=== PATIENT | female | born 1970 | race Caucasian/White ===

== ENCOUNTER → 2018-01-21 | Day surgery (SDC) | payer OTHER ==
[~2018-01-21] VITALS: Ht 152.4 cm; Wt 81.6 kg
--- NOTE | 2018-01-21 13:42 | Operative Report ---
Operative/Inv Procedure Report Surgery Date: 01/21/18 Name of Procedure: right UVJ stone with colic; fluorosocopy Pre-Operative Diagnosis: 7mm right UVJ stone Post-Operative Diagnosis: same Estimated Blood Loss: scant Surgeon/Secondary English Teacher: Tylor Camejo MD Anesthesia: moderate sedation Specimens: none Complications: none Condition: pain free in rr Operative/Procedure Note Note: The patient was taken to the operating room and placed on the ESWL table in supine position. Time out was performed, with the patient awake, to confirm identity, procedure, laterality, and other pertinent jonn-operative information. After adequate anesthesia, the patient was positioned so that the right flank was placed over the ESWL table cut-out, and overlying the dome of the shockwave generator. C-arm fluroscopy, as well as renal US was used to locate the stone, and evaluate the right kidney. The stone was faintly visible on fluroloscopy at the right mid-ureter. Renal US confirmed mild hydronephrosis with no additional stone seen in the right kidney. The right ureter stone was approximate 9 mm in size, and faintly visible with fluoroscopy. Using the C-Arm fluoroscopy in an A-P, and Oblique view, the position of the ureter stone was optimized at the center of the crosshairs. At this point, E.S.W.L. was initiated at low power levels x 200 shocks. After noting the patient's tolerance to the shockwaves, the shockwave power level was quickly maximized. At the end of the procedure, the composition of the stone had changed significantly indicating the pulverization of the ureter stone. A total of 3000 shockwaves were delivered to the stone in order to achieve adequate lithotrypsy. All sponge needle and instrument count were correct at the end of the case. The patient tolerated the procedure well, and was awakened and taken to recovery in satisfactory condition via stretcher. The pt. will be dischared to home with pain meds, diet orders, and intructions to catch fragments with straining the urine. The patient is to have follow-up renal ultrasound and KUB within 1-2 weeks and f/u in the office after discharge. Discharge Disposition: Same Day Admissions CC: Tylor Camejo MD
== END ==
LOC: STS 03:28
DX: N13.2 Hydronephrosis with renal and ureteral calculous obstruction (principal); E11.9 Type 2 diabetes mellitus without complications; Z79.84 Long term (current) use of oral hypoglycemic drugs; E03.9 Hypothyroidism, unspecified
CPT/HCPCS: 81025; J2250

== ENCOUNTER 2018-01-29 09:44 | Emergency (ER) | payer OTHER ==
[~2018-01-29] VITALS: Ht 154.9 cm; Wt 81.6 kg
--- NOTE | 2018-01-29 10:05 | ED GI/GU/ABDOMINAL COMPLAINT ---
History of Present Illness General Chief Complaint: Female Urogenital Problems Stated Complaint: SIB DR CAMEJO, KIDNEY STONE Source: patient, family, old records Exam Limitations: no limitations Vital Signs & Intake/Output Vital Signs & Intake/Output Vital Signs Date Time Temp Pulse Resp B/P B/P Pulse O2 O2 Flow FiO2 Mean Ox Delivery Rate 01/29 1517 98.0 98 18 100/70 95 Room Air Room Air 05/ 1414 97.0 102 18 112/70 98 Room Air / 1305 97.3 100 18 112/58 100 Room Air 05/02 1253 97.7 100 20 94 Room Air 05/ 1239 99.0 100 18 111/58 96 Room Air / 1149 97.0 70 20 132/72 100 Room Air / 1126 99.0 84 18 136/70 96 Room Air / 1056 99.0 110 18 148/80 100 Room Air / 0948 97.5 106 18 165/99 96 Room Air Allergies Coded Allergies: Sulfa (Sulfonamide Antibiotics) (HIVES, ITCHY THROAT 01/20/18) aspirin (HIVES, ITCHY THROAT 01/20/18) ibuprofen (HIVES, ITCHY THROAT 01/20/18) penicillin G (UNKNOWN 01/20/18) Reconcile Medications Levothyroxine Sodium (Levoxyl) 50 MCG TABLET 2 TAB PO DAILY AC THYROID ( Reported) Metformin HCl (Metformin HCl ER) 500 MG TAB.ER.24H 1 TAB PO BID DIABETES ( Reported) Triage Note: PT FROM HOME C/O KIDNEY STONE? PT SENT IN BY DR CAMEJO FOR KIDNEY STONE AFTER PT HAD RIGHT SIDE BLASTED ON 01/21. PT STATES PAIN CONTINUES, NAUSEA AND DRY HEAVING, URINARY FREQUENCY. PT STATE BURNING UPON URINATION. VSS. PT IN DISTRESS SITTING ON EDGE OF CHAIR, DENIES HEMATURIA. Triage Nurses Notes Reviewed? yes LMP (ages 10-50): now ? n Is pt currently ? No Onset: Abrupt Duration: day(s): (1), constant Timing: recent history Quality/Severity: aching, cramping, moderate, sharpness Severity Numbers: 10 Location: right flank, right lower quadrant Radiation: flank No Modifying Factors: none Associated Symptoms: denies HPI: 47-year-old female history of prediabetes hypothyroid kidney stones presents to the ER for evaluation complaining of right flank and right lower quadrant abdominal pain. Her history is significant that she had a lithotripsy performed on January 21 by him. She was sent home with Tylenol with codeine and states she only needed to take it the first day. She now reports a dry heaving nausea no vomiting. Urinary frequency hematuria. She is not taken anything for pain today. She denies fever or chills Past History Travel History Traveled to [place] past 21 day No Medical History Any Pertinent Medical History? see below for history Renal: nephrolithiasis Endocrine: diabetes, hypothyroidism Surgical History Surgical History: lithotripsy Psychosocial History What is your primary language Jordanian Tobacco Use: Never used Family History Hx Contributory? No Review of Systems Review of Systems Constitutional: Reports: see HPI. Comments Review of systems: See HPI, All other systems negative. Constitutional, no chills no fever HEENT: no sore throat no congestion Cardiovascular: No chest pain Skin: no rashes, no change in skin Respiratory: No dyspnea no cough GI: nausea no vomiting Muscle skeletal: No joint pain, no back pain Neurologic: , no headache Heme/endocrine: No bruising Physical Exam Physical Exam General Appearance: well developed/nourished, no apparent distress, alert Gastrointestinal: soft, tenderness Comments: Well-developed well-nourished person in no acute distress HEENT: Normal EENT exam; PERRL, EOMI, s. HEAD is atraumatic. moist mucous membranes. Neck: Supple, normal range of motion Back: Nontender, no CVA tenderness. Full range of motion Cardiovascular: Regular rate and rhythms no murmur Respiratory: No respiratory distress. Patient speaking in full complete sentences. Breath sounds clear to auscultation bilaterally: NO W/R/R Abdomen: Soft, rlq tender nondistended, no appreciable organomegaly. Normal bowel sounds. No rebound/guarding, Extremity: No edema, full range of motion of extremities Neuro: Alert oriented x3, motor sensory normal, cranial nerves II through XII grossly intact. There were no obvious focal neurologic abnormalities. Skin: No appreciable rash on exposed skin, skin is warm and dry. Psych: Mood and affect is normal, memory and judgment is normal. Core Measures ACS in differential dx? No Sepsis Present: No Sepsis Focused Exam Completed? No Progress Differential Diagnosis: appendicitis, biliary colic, bowel obstruction, ectopic , gastritis, hepatitis, hernia, ischemic bowel, intrauterine , kidney stone, ovarian cyst, ovarian torsion, pancreatitis, perforated viscous, threatened AB, UTI/pyelo Plan of Care: Orders Procedure Date/time Status Saline Lock 01/29 1007 Active COMPREHENSIVE METABOLIC PANEL 01/29 1007 Complete CBC WITHOUT DIFFERENTIAL 01/29 1007 Complete URINE 01/29 0947 Complete URINALYSIS 01/29 0947 Complete Laboratory Tests 01/29/18 1032: Anion Gap 16, Estimated GFR > 60, BUN/Creatinine Ratio 12.5, Glucose 103 H, Calcium 9.8, Total Bilirubin 0.6, AST 52 H, ALT 63 H, Alkaline Phosphatase 90, Total Protein 8.1, Albumin 4.8, Globulin 3.3, Albumin/Globulin Ratio 1.5, CBC w Diff NO MAN DIFF REQ, RBC 5.05, MCV 82.4, MCH 28.4, MCHC 34.4, RDW 13.5, MPV 8.0 , Gran % 59.2, Lymphocytes % 32.4, Monocytes % 6.9, Eosinophils % 1.0, Basophils % 0.5, Absolute Granulocytes 4.7, Absolute Lymphocytes 2.6, Absolute Monocytes 0.6, Absolute Eosinophils 0.1, Absolute Basophils 0, Urine Color PINK H, Urine Clarity HAZY H, Urine pH 6.0, Ur Specific [place] <= 1.005, Urine Protein NEG, Urine Ketones NEG, Urine Nitrite NEG, Urine Bilirubin NEG, Urine Urobilinogen 0.2, Ur Leukocyte Esterase NEG, Ur Microscopic SEDIMENT EXAMINED, Urine RBC 25- 50 H, Ur Epithelial Cells MOD H, Urine Bacteria FEW H, Urine Hemoglobin LARGE H, Urine Glucose NEG, Urine Test NEGATIVE Labs ordered old records reviewed case discussed with Dr. Camejo agrees with plan CAT scan ordered, will call Back with the results Patient reports no improvement in symptoms with morphine-Dilaudid 1 mg IV ordered 1130 pt reports no pain at this time, i d/w her her labs, pendiing ct results 1230 case once again discussed with Dr. Camejo, given the CAT scan results and believes it is a fragment from the previous lithotripsy. The pain is resolved with Dilaudid he advised the patient can go home she has pain medication Flomax and Zofran at home he advised to have the patient call same-day surgery tomorrow however she has not passed the stone as she will need to have lithotripsy and retrieval at that time. The patient and family feel comfortable with plan she feels comfortable with going home at this time she denies pain 1500 patient now reports that she is feeling well enough to go home she has had no vomiting is being medicated with an additional 4 mg of Zofran. She still feels comfortable plan will call same-day surgery tomorrow she denies pain nontoxic-appearing cleared for discharge Diagnostic Imaging: Viewed by Me: CT Scan. Discussed w/RAD: CT Scan. Radiology Impression: PATIENT: ROXANA TRIPLETT PRESENT AGE: 47 PATIENT ACCOUNT NO: [id number] : 70 LOCATION: [facility] ORDERING PHYSICIAN: Kendall MUNIZ SERVICE DATE: 01/29/18 EXAM TYPE: CAT - CT ABD & PELVIS W/O IV CONTRAS EXAMINATION: CT ABDOMEN AND PELVIS WITHOUT CONTRAST CLINICAL INFORMATION: Right flank and right lower quadrant abdominal pain. Recent lithotripsy. Presumptive diagnosis of kidney stone. COMPARISON: None. TECHNIQUE: Multidetector volumetric imaging was performed from the superior aspect of the liver through the pubic symphysis. Sagittal and coronal reformatted images were obtained on the technologist workstation. DLP: 472.13 mGy-cm. FINDINGS: LUNG BASES: The visualized lung bases are unremarkable. LIVER, GALLBLADDER, AND BILIARY TREE: The liver is enlarged, measuring 21.7 cm longitudinally and diffusely lower in attenuation compared to the spleen, consistent with hepatic steatosis. Geographic curvilinear areas of fatty sparing are seen near the gallbladder fossa. No focal hepatic lesion on noncontrast imaging. No biliary ductal dilatation is present. Common bile duct measures 0.6 cm in diameter. The gallbladder is unremarkable with no evidence of radiopaque gallstones, gallbladder wall thickening, or obvious pericholecystic inflammatory changes. PANCREAS: Unremarkable on noncontrast imaging. SPLEEN, ADRENAL GLANDS: Unremarkable on noncontrast imaging. KIDNEYS AND URETERS: The kidneys are normal in size, shape, and attenuation. There is mild right-sided hydrocele nephrosis with dilated intrarenal calyces and renal pelvis seen. The right ureter is mildly dilated down to the ureterovesical junction, where a 0.3 cm obstructing calcification is seen (series 2, image 75) this calcification has pixel attenuation values ranging up to 358 Hounsfield units and may represent a uric acid stone, though assessment is limited given the small size. No additional right renal or ureteral calculi are seen. On the left side, no hydronephrosis, hydroureter, or calculi seen. No perinephric stranding. BLADDER: Unremarkable. No bladder calculi or perirenal cystic fat infiltration. PELVIC VISCERA: Unremarkable. GASTROINTESTINAL TRACT: The small and large bowel are unremarkable. The appendix is unremarkable. ABDOMINAL WALL: Small fat-containing umbilical hernia is seen. LYMPH NODES, VASCULAR: Unremarkable. OSSEOUS STRUCTURES: Unremarkable. IMPRESSION: 1. Mild right-sided hydroureteronephrosis is seen due to an obstructing 0.3 cm probable uric acid stone at the ureterovesical junction. 2. No additional renal, ureteral or bladder calculi seen. 3. Hepatomegaly with diffuse hepatic steatosis. Geographic area of fatty sparing seen near the gallbladder fossa. 4. Small fat-containing umbilical hernia. DICTATED BY: Naty Conner MD DATE/TIME DICTATED:01/29/181200 PLATE MAKER:GLENN DATE/TIME TRANSCRIBED:01/29/181200 CONFIDENTIAL, DO NOT COPY WITHOUT APPROPRIATE AUTHORIZATION. <Electronically signed in Other Vendor System> SIGNED BY: Naty Conner MD 01/29/18 1217 Initial ED EKG: none Departure Departure Time of Disposition: 1235 Disposition: HOME OR SELF CARE Condition: Stable Clinical Impression Primary Impression: Kidney stone Referrals: Nikki VIDAL,Dereje Barriga (PCP/Family) Additional Instructions: Please call the [facility] same day surgery department tomorrow morning to find out what time you will be scheduled for your procedure with dr camejo. Continue taking your flomax, zofran and pain medication as prescribed. If the pain worsens despite medication, you have vomiting develop fever chills or worsening pain please return to the emergency room immediately. As discussed if your pass the stone fragment you do not have to have the procedure however if you continue to have pain discomfort you'll have to have it done. Nothing to eat or drink past midnight. Same day surgery: 6:30 AM - 6:00 PM Departure Forms: Customer Survey General Discharge Information
[2018-01-29] MEDS ORDERED: LEVOXYL50 MCG PO (10:52)
[2018-01-29] MEDS ORDERED: METFORMIN HCL500 M4 PO (10:53)
[2018-01-29 10:57] LABS: ABSOLUTE BASOPHIL COUNT 0 /CUMM (0.0-0.2); ABSOLUTE EOSINOPHIL COUNT 0.1 /CUMM (0.0-0.7); ABSOLUTE GRANULOCYTE CT 4.7 /CUMM (1.4-6.5); ABSOLUTE LYMPH COUNT 2.6 /CUMM (1.2-3.4); ABSOLUTE MONOCYTE COUNT 0.6 /CUMM (0.10-0.60); BASOPHIL % 0.5 % (0.0-2.0); GRANULOCYTE % 59.2 % (42.2-75.2); HEMATOCRIT 41.6 % (37-47); MEAN CORPUSCULAR HGB 28.4 PG (27.0-31.0); MEAN CORPUSCULAR HGB CONC 34.4 G/DL (33.0-37.0); MEAN CORPUSCULAR VOLUME 82.4 FL (81.0-99.0); PLATELET COUNT 330 /CUMM (130-400); RBC DISTRIBUTION WIDTH 13.5 % (11.5-14.5); RED BLOOD CELL CT 5.05 /CUMM (4.20-5.40)
--- NOTE | 2018-01-29 12:17 | CT SCAN REPORT ---
EXAMINATION: CT ABDOMEN AND PELVIS WITHOUT CONTRAST CLINICAL INFORMATION: Right flank and right lower quadrant abdominal pain. Recent lithotripsy. Presumptive diagnosis of kidney stone. COMPARISON: None. TECHNIQUE: Multidetector volumetric imaging was performed from the superior aspect of the liver through the pubic symphysis. Sagittal and coronal reformatted images were obtained on the technologist workstation. DLP: 472.13 mGy-cm. FINDINGS: LUNG BASES: The visualized lung bases are unremarkable. LIVER, GALLBLADDER, AND BILIARY TREE: The liver is enlarged, measuring 21.7 cm longitudinally and diffusely lower in attenuation compared to the spleen, consistent with hepatic steatosis. Geographic curvilinear areas of fatty sparing are seen near the gallbladder fossa. No focal hepatic lesion on noncontrast imaging. No biliary ductal dilatation is present. Common bile duct measures 0.6 cm in diameter. The gallbladder is unremarkable with no evidence of radiopaque gallstones, gallbladder wall thickening, or obvious pericholecystic inflammatory changes. PANCREAS: Unremarkable on noncontrast imaging. SPLEEN, ADRENAL GLANDS: Unremarkable on noncontrast imaging. KIDNEYS AND URETERS: The kidneys are normal in size, shape, and attenuation. There is mild right-sided hydrocele nephrosis with dilated intrarenal calyces and renal pelvis seen. The right ureter is mildly dilated down to the ureterovesical junction, where a 0.3 cm obstructing calcification is seen (series 2, image 75) this calcification has pixel attenuation values ranging up to 358 Hounsfield units and may represent a uric acid stone, though assessment is limited given the small size. No additional right renal or ureteral calculi are seen. On the left side, no hydronephrosis, hydroureter, or calculi seen. No perinephric stranding. BLADDER: Unremarkable. No bladder calculi or perirenal cystic fat infiltration. PELVIC VISCERA: Unremarkable. GASTROINTESTINAL TRACT: The small and large bowel are unremarkable. The appendix is unremarkable. ABDOMINAL WALL: Small fat-containing umbilical hernia is seen. LYMPH NODES, VASCULAR: Unremarkable. OSSEOUS STRUCTURES: Unremarkable. IMPRESSION: 1. Mild right-sided hydroureteronephrosis is seen due to an obstructing 0.3 cm probable uric acid stone at the ureterovesical junction. 2. No additional renal, ureteral or bladder calculi seen. 3. Hepatomegaly with diffuse hepatic steatosis. Geographic area of fatty sparing seen near the gallbladder fossa. 4. Small fat-containing umbilical hernia.
[2018-01-29 15:17] VITALS: BP 100/70
== END 2018-01-29 16:07 ==
LOC: ERH 09:44
PROVIDERS: Physician Assistant Medical
DX: N20.0 Calculus of kidney (principal)
CPT/HCPCS: 74176; 81001; 81025; 96361; 96374; 96375; J2405

== ENCOUNTER → 2018-01-30 | Day surgery (SDC) | payer OTHER ==
[~2018-01-30] VITALS: Ht 154.9 cm; Wt 81.6 kg
[~2018-01-30] MED LIST: LEVOXYL50 MCG PO; METFORMIN HCL500 M4 PO
--- NOTE | 2018-01-30 10:58 | Operative Report ---
Operative/Inv Procedure Report Surgery Date: 01/30/18 Name of Procedure: cystoscopy: right ureteroscopy with basket extract stone: retrograde pyelogram. laser standby Pre-Operative Diagnosis: right steinstrauss: ureter stone with hydro. Post-Operative Diagnosis: same Estimated Blood Loss: scant Surgeon/Making Department Preparer: Tylor Camejo MD Anesthesia: moderate sedation Specimens: right ureter stone Complications: none Condition: improved Operative/Procedure Note Note: The patient was taken to the operating room and placed on the OR table in supine position. With the patient awake, timeout was performed in order to confirm; correct patient, correct procedure, as well as correct laterality, and other pertinent jonn-operative information. After adequate anesthesia and antibiotics , the patient was then placed lithotomy stirrups, draped and prepped in the usual surgical fashion. A 22 Iranian cystoscope sheath with 30 angle lens was inserted into the bladder without difficulty. Upon entering the bladder, the bladder was noted to be free of tumor free of stone. Both orifices were in their orthotopic position. The right right ureter orifice was intubated with an tiger-tail catheter, and a retrograde pyelogram, with fluoroscopy, was performed. A 4 mm left ureter filling defects (c/w stone), with proximal hydronephrosis, was visualized. The tiger-tail catheter was removed, followed by insertion of a 0.035 Glidewire, which was advanced into the left renal pelvis without difficulty. Correct placement of the wire was confirmed on fluoroscopy. Leaving the Glidewire in place, an 8 Iranian ureteral sheath dilator was rail-roaded over the Glidewire. Under fluroscopic visualization, the dilator was advanced slowly, and easily, into the bladder and subsequently into the left ureter without signficant difficulty. The ureteral dilator was then removed, leaving the Glidewire in place. The rigid micro-6 ureteroscope was then inserted under direct visualization following the Glidewire. The right orifice was intubated, and the ureteroscope was advanced into the distal left ureter. The stones was clearly visible. The Bard 0 tip basket was then inserted through the ureteroscope, and then deployed, and snaring the stone. Ureteroscope, along with the basket and stone were then gently extracted without difficulty. The stone was sent to pathology. The Glidewire was then removed without difficulty. The patient tolerated the procedure well, and was then taken to the recovery room in satisfactory condition. The patient is discharged home with pain medication, and antibiotics. The patient is to follow up in 1-2 weeks. Discharge Disposition: Same Day Admissions CC: Tylor Camejo MD
--- NOTE | 2018-01-30 15:18 | RADIOLOGY REPORT ---
EXAMINATION: XR ABDOMEN CLINICAL INDICATION: Right-sided ureteroscopy and retrograde ureterogram. COMPARISON: None TECHNIQUE AND FINDINGS: C-arm fluoroscopy assistance is provided at the time of right-sided ureteroscopy and retrograde ureterogram. Six spot radiographs were obtained at the time of the procedure. FLUOROSCOPY TIME: 13.9 minutes. IMPRESSION: Fluoroscopic assistance is provided at the time of the right-sided ureteroscopy and retrograde ureterogram to Dr. Camejo. Full procedural detail will be dictated by Dr. Camejo.
== END ==
LOC: STS 07:00
DX: N13.2 Hydronephrosis with renal and ureteral calculous obstruction (principal); E11.9 Type 2 diabetes mellitus without complications; Z79.84 Long term (current) use of oral hypoglycemic drugs; K21.9 Gastro-esophageal reflux disease without esophagitis; E03.9 Hypothyroidism, unspecified
CPT/HCPCS: 74018; 82355; J2250